=== PATIENT | female | born 1965 | race Caucasian/White ===

== ENCOUNTER 2023-03-15 09:11 | Emergency (ER) | payer MEDICAID, SELFPAY ==
[2023-03-15] VITALS (9 sets, daily range): BP systolic 89–115; BP diastolic 43–66; PULSE 55–64; RESP 12–18; TEMP 36.6–36.9; O2SAT 95–99; BMI 22.0
--- NOTE | ~2023-03-15 | XR_ITS ---
EXAMINATION: XR RIBS, LEFT CLINICAL INFORMATION: Left-sided rib pain, fall. COMPARISON: None available. TECHNIQUE: 3 views of the left ribs were obtained. FINDINGS: Lungs are clear. No consolidation, pneumothorax, or pleural effusion. The cardiomediastinal silhouette and pulmonary vasculature are normal. Mildly displaced left anterior eighth through 10th rib fractures. XR/XR ribs LT min 3V w CXR1V IMPRESSION: 1. Mildly displaced left anterior eighth through 10th rib fractures. 2. No acute cardiopulmonary findings.
--- NOTE | ~2023-03-15 | XR_ITS ---
EXAMINATION: XR SHOULDER, LEFT CLINICAL INFORMATION: Pain. COMPARISON: None available. TECHNIQUE: Three views of the left shoulder. FINDINGS: There is mild acromioclavicular osteoarthritis. Glenohumeral joint is well preserved. No fracture. Alignment is anatomic. Soft tissues are normal with no abnormal calcifications. XR/XR shoulder LT min 2V IMPRESSION: No acute fractures or malalignment. Mild acromioclavicular osteoarthritis.
--- NOTE | ~2023-03-15 | CT_ITS ---
EXAMINATION: CT CHEST, ABDOMEN, AND PELVIS WITH CONTRAST CLINICAL INFORMATION: COMPARISON: None TECHNIQUE: Multidetector volumetric CT imaging of the chest, abdomen, and pelvis was obtained after the administration of 85 mL of Omnipaque 350 intravenous contrast without immediate adverse reactions. Axial MIP volume rendering provided. Sagittal and coronal reformatted images were obtained. This CT examination was performed using dose optimization techniques as appropriate, variously including the following: *Automated exposure control *Adjustment of mA and/or kV according to patient size (this includes techniques or standardized protocols for targeted exams where dose is matched to indication/reason for exam; i.e. extremities or head) *Use of iterative reconstruction technique DLP: 363 mGy-cm FINDINGS: LUNGS: No acute infiltrate or lung nodule identified. Bibasilar lower lobe centrilobular emphysema. MEDIASTINUM: The mediastinum appears unremarkable. CORONARY ARTERY CALCIFICATION: Mild. PLEURA: No effusion or pneumothorax appreciated. No pleural mass or thickening identified. AXILLA: No lymphadenopathy by size criteria. LIVER, GALLBLADDER, AND BILIARY TREE: The liver appears unremarkable in size, shape, and attenuation. No focal hepatic lesion or biliary ductal dilatation is appreciated. Unremarkable appearance of the gallbladder. PANCREAS: Unremarkable SPLEEN: Unremarkable ADRENAL GLANDS: Unremarkable KIDNEYS AND URETERS: The kidneys appear unremarkable in size, shape, and attenuation. No hydronephrosis, hydroureter, or calculi seen. BLADDER: Poorly distended, therefore suboptimally evaluated. Grossly unremarkable. GASTROINTESTINAL TRACT: Status post gastric bypass. Small to moderate hiatus hernia. No diverticulosis. Normal-appearing distal ileum and vermiform appendix. ABDOMINAL WALL: No significant hernia is appreciated. LYMPH NODES: No evidence of adenopathy by size criteria. VASCULAR: Normal variant direct origin of the common hepatic artery from the aorta. Aortoiliac calcification. PELVIC VISCERA: Approximately 1.2 cm left ovarian macrocalcification. OSSEOUS STRUCTURES: Mildly displaced fractures at the lateral aspects of the left 7th through 10th ribs. Bilateral spondylolysis with grade 1-grade 2 anterolisthesis and severe disc space narrowing at L5-S1. Moderate to severe disc space narrowing at L2-L3. Mild multilevel additional degenerative changes. CT/CT abdomen pelvis w IV con IMPRESSION: Mildly displaced fractures at the lateral aspects of the left 7th through 10th ribs. No other acute radiographic finding.
--- NOTE | 2023-03-15 09:34 | ED.GENADULT ---
HPI - General Adult General Chief complaint: General Medical Stated complaint: n/v x4 days per ems Time Seen by Provider: 03/15/23 09:32 Source: patient and RN notes reviewed Mode of arrival: ambulatory Limitations: no limitations History of Present Illness HPI narrative: This is a 57-year-old female, with a history of stomach bypass, anxiety and depression, presenting to the emergency department from [place] for evaluation of dizziness and abnormal labs. Patient states that she is currently staying at [place] due to suicidal attempt 5 days ago. She states that she took multiple medications to overdose 2 under life and also had a fall. She was then seen at [facility] on March 09 2023 where she had an x-ray of her chest which revealed a T11 compression fracture, no rib fractures at the time. She states that she continues to have left-sided rib pain. She states that over the last several days that she has had dizziness especially upon standing. States that this dizziness lasts for 30 seconds and resolves on its own. She states that she chronically vomits every day for the last 6-8 years. History of stomach bypass and stomach ulcer. Denies any hemoptysis or hematemesis. She denies any headaches, blurred vision, chest pain, shortness of breath abdominal pain, nausea, or diarrhea. No bloody or black stool. Denies any urinary symptoms. No other complaints or concerns at this time. MD complaint: Dizziness Onset (ago): day(s) Relieving factors: none Exacerbating factors: none Associated symptoms: denies other symptoms Treatments prior to arrival: none Related Data Allergies Allergy/AdvReac Type Severity Reaction Status Date / Time codeine AdvReac Nightmare Verified 03/15/23 09:53 NSAIDS (Non-Steroidal AdvReac Abdominal Verified 03/15/23 09:53 Anti-Inflamma Pain Review of Systems Review of Systems: Yes all other systems are reviewed and are negative Constitutional: Constitutional: Reports as per [facility] Past Medical History Attestation statement: The following information was validated with the patient. Social History Social History Alcohol intake: current Alcohol intake frequency: holidays/special occasions only Smoked in Last 30 Days: Yes Substance Use Type: Crack/Cocaine Advance Directives: No Advance Directives Information Provided: No Physical Exam ED Vital Signs: Vital Signs - 24 hr 03/15/23 09:21 03/15/23 11:50 03/15/23 11:52 Temperature 98.1 F Pulse Rate 61 57 59 Respiratory Rate 16 Blood Pressure 100/54 L 102/43 L 94/46 L Pulse Oximetry 99 Oxygen Delivery Method Room Air 03/15/23 11:54 03/15/23 12:05 03/15/23 13:46 Temperature 97.8 F Pulse Rate 64 60 57 Respiratory Rate 18 16 Blood Pressure 89/46 L 99/55 L Pulse Oximetry 99 Oxygen Delivery Method Room Air 03/15/23 14:06 03/15/23 16:00 03/15/23 17:26 Temperature 98.0 F 98.4 F 98.2 F Pulse Rate 55 56 57 Respiratory Rate 16 16 12 Blood Pressure 104/54 L 107/66 115/45 L Pulse Oximetry 98 Oxygen Delivery Method Room Air BMI result Body Mass Index 22.0 Const General: cooperative, comfortable and no acute distress Orientation/consciousness: patient oriented x3 Limitations: no limitations HENMT Head: Yes normal to inspection, Yes normocephalic and Yes atraumatic Ears: hearing grossly normal bilaterally General nose exam: Normal external nose present Face and sinus: Yes normal facial exam Mouth: Normal oral and palatal mucosa present, oropharynx normal and moist mucous membranes Throat: Yes posterior oropharynx normal Eyes General: appearance normal, both eyes and all related structures Eyelids: Yes eyelids normal Conjunctivae: conjunctivae normal Sclerae: sclerae normal Pupils: Equal, round and reactive pupils present EOM: EOMs intact bilaterally Neck Neck: Yes normal visual inspection, Yes full ROM and Yes no lymphadenopathy Lymphatic: no lymphadenopathy noted Chest Other: Tenderness palpation along the left anterior chest wall, no flail chest, no bony step-off or deformity. Chest palpation & inspection: normal inspection of the chest Resp Effort & Inspection: normal respiratory effort and able to speak in complete sentences Auscultation: clear to auscultation bilaterally, no crackles, no rales, no rhonchi and no wheezes Cardio Rate: regular rate Rhythm: regular rhythm Heart sounds: S1 normal heart sound present and S2 normal heart sound present GI Inspection: Yes normal to inspection Skin General skin exam: no rashes or lesions noted Trauma: no lacerations or abrasions Wounds: no wounds Neuro General: patient oriented x3 and moves all extremities Cranial nerves: Yes Equal, round and reactive pupils present Extrem Other: Tenderness to palpation diffusely left shoulder joint tenderness palpation by, pain with range of positive empty can test General: Yes normal to inspection Right upper extremity: normal to inspection Left upper extremity: normal to inspection Right lower extremity: normal to inspection Left lower extremity: normal to inspection Course Reevaluation(s) Reevaluation #1: Critical hemoglobin at 7.0, hematocrit 24.7%. Time: 10:48 Reevaluation #2: Patient currently receiving packed red blood cells, CT chest revealing mildly displaced fractures at the lateral aspect of the left 7th through 10 rib, as well as degenerative changes in her spine. No acute radiologic findings seen. Patient will be admitted to the hospital given low H&H requiring blood transfusion. Time: 16:40 Reevaluation #3: Further discussion with hospitalist, given patient has for mildly displaced fractures at the left 7 through 10th ribs, and this is a high-risk situation giving complications regarding multiple rib fractures, she would benefit from trauma consult and transfer. Sign out given to my colleague Honorio Brady PA-C Time: 17:23 Additional Reevaluation(s): Patient received in sign-out at change of shift pending trauma consult at [facility] due to for minimally displaced rib fractures. The patient requires admission due to symptomatic anemia however can not be admitted to this hospital due to the number of rib fractures. I discussed with [facility] transfer line spoke to Dr. Robb who will accept the patient to [facility] ED as a trauma consult. I discussed with the patient as well to inform her of the change and she is agreeable to transfer I discussed with Radiology to push the images through to viral [employer] system and make a disc of the patient's CT scans to bring with her Medications Administered Discontinued Medications Generic Name Dose Route Start Last Admin Trade Name Freq PRN Reason Stop Dose Admin Acetaminophen 650 mg 03/15/23 12:52 03/15/23 12:56 Acetaminophen 325 Mg Tablet PO 03/15/23 12:53 650 mg ONCE ONE Administration Sodium Chloride 100 mls @ 100 mls/hr 03/15/23 12:35 03/15/23 17:29 Ns IV 03/15/23 13:34 Infused ONCE ONE Infusion Iohexol 100 ml 03/15/23 13:38 03/15/23 13:38 Iohexol 350 Mg/Ml 100 Ml Infus..Btl IV 03/15/23 13:39 85 ml ONCE ONE Administration Lorazepam 1 mg 03/15/23 18:26 03/15/23 18:32 Lorazepam 1 Mg Tablet PO 03/15/23 18:27 1 mg ONCE ONE Administration Medical Decision Making Medical Decision Making [facility] Narrative: This is a 57-year-old female presenting to the emergency department for evaluation of low blood pressure and ?abnormal labs. On arrival, blood pressure 100/54. She is neurologically stable. States that she gets dizzy upon standing, this has been happening for days. Denies any chest pain or shortness of breath. She also states that she was told that her H&H was low several days ago. Denies any bloody or black stool. Denies any hemoptysis. She states that she is otherwise feeling well, does endorse some left-sided rib pain status post mechanical fall which occurred last week. She is uncertain how this mechanical fall occurred however states that she was suicidal and took many of her medications and was seen at [facility] where she said that she did not have any rib fractures and was discharged to the psychiatric facility. Also reports some left shoulder pain which is chronic for her. Plan: Labs, x-ray left shoulder, x-ray left rib, orthostatics, EKG Differential Diagnosis Differential Diagnoses: The differential diagnosis associated with the presentation includes Anemia, orthostatic hypotension, dehydration, electrolyte abnormality, rib fracture, pneumothorax Consult Healthcare Provider Management of the patient was discussed with: Hospitalist Dr. Cruz Lab Data [facility] [place] Lab Attestation statement: I reviewed the patient's lab results. See course comment 03/15/23 10:07 03/15/23 10:07 Labs: Lab Results 03/15/23 03/15/23 03/15/23 Range/Units 10:07 11:53 17:39 WBC 5.2 (4.8-10.8) X10*3/uL RBC 3.63 L (4.20-5.50) X10*6/uL Hgb 7.0 L* (12.0-16.0) g/dl Hct 24.7 L (37.0-47.0) % MCV 68.0 L (80.0-98.0) fL MCH 19.3 L (27.0-33.0) pg MCHC 28.3 L (31.0-35.0) g/dl RDW 20.1 H (11.0-16.0) % Plt Count 408 H (160-400) X10*3/uL MPV 9.7 (9.4-12.3) fL Immature Gran % (Auto) 0.2 (0.0-0.4) % Neut % (Auto) 44.7 L (45-73) % Lymph % (Auto) 39.8 (20-40) % Porter % (Auto) 10.5 (2-11) % Eos % (Auto) 3.8 (0-4) % Baso % (Auto) 1.0 (0-2) % Lymph # (Auto) 2.1 (1.2-4.9) X10*3/uL Porter # (Auto) 0.6 (0.1-1.2) X10*3/uL Eos # (Auto) 0.2 (0.0-0.4) X10*3/uL Baso # (Auto) 0.1 (0.0-0.2) X10*3/uL Abs Immat Gran (auto) 0.01 (0.00-0.03) X10*3/uL Absolute Neuts (auto) 2.3 (2.0-8.3) x10*3/uL Absolute Nucleated RBC 0.000 (0.0-0.012) X10*3/uL Nucleated RBC % (auto) 0.0 (0.0-0.2) /100WBC PT 13.3 (11.1-13.3) SEC INR 1.1 (0.9-1.1) APTT 29.2 (26.0-36.4) SEC Sodium 142 (135-145) mmol/L Potassium 4.3 (3.3-5.1) mmol/L Chloride 107 (96-108) mmol/L Carbon Dioxide 28 (22-29) mmol/L Anion Gap 11 L (12-20) BUN 17 H (9-16) mg/dL Creatinine 0.98 (0.5-1.4) mg/dL Estim Creat Clear Calc 55.6 Estimated GFR 58 Random Glucose 93 (60-115) mg/dL Calcium 8.7 (8.4-10.2) mg/dL Magnesium 2.6 (1.6-2.6) mg/dL Total Bilirubin 0.3 (0.0-1.0) mg/dL Direct Bilirubin 0.1 (0.0-0.5) mg/dL AST 13 (5-31) U/L ALT 6 (0-31) U/L Alkaline Phosphatase 74 (39-117) U/L Troponin I High Sens < 2.7 (<3.5-17.0) ng/L Total Protein 5.9 L (6.5-8.0) g/dL Albumin 3.4 L (3.5-5.0) g/dL Lipase 29 (8-78) U/L Stool Occult Blood NEGATIVE (NEGATIVE) COVID-19 (NILSA) Negative (Negative) COVID-19 Clin Com See Note Blood Type O Positive Antibody Screen NEGATIVE Crossmatch See Detail Independent Interpretation I performed an independent interpretation of an: EKG Interpretation: EKG sinus bradycardia at a ventricular rate of 57 beats per minute, SD interval 160, QTC 422, no ST elevation or depression. Radiology Impression Discussion of test interpretation with radiology: I have reviewed the radiologist's reading. Radiologist Impression: EXAMINATION: CT CHEST, ABDOMEN, AND PELVIS WITH CONTRAST CLINICAL INFORMATION: COMPARISON: None TECHNIQUE: Multidetector volumetric CT imaging of the chest, abdomen, and pelvis was obtained after the administration of 85 mL of Omnipaque 350 intravenous contrast without immediate adverse reactions. Axial MIP volume rendering provided. Sagittal and coronal reformatted images were obtained. This CT examination was performed using dose optimization techniques as appropriate, variously including the following: *Automated exposure control *Adjustment of mA and/or kV according to patient size (this includes techniques or standardized protocols for targeted exams where dose is matched to indication/reason for exam; i.e. extremities or head) *Use of iterative reconstruction technique DLP: 363 mGy-cm FINDINGS: LUNGS: No acute infiltrate or lung nodule identified. Bibasilar lower lobe centrilobular emphysema. MEDIASTINUM: The mediastinum appears unremarkable. CORONARY ARTERY CALCIFICATION: Mild. PLEURA: No effusion or pneumothorax appreciated. No pleural mass or thickening identified. AXILLA: No lymphadenopathy by size criteria. LIVER, GALLBLADDER, AND BILIARY TREE: The liver appears unremarkable in size, shape, and attenuation. No focal hepatic lesion or biliary ductal dilatation is appreciated. Unremarkable appearance of the gallbladder. PANCREAS: Unremarkable SPLEEN: Unremarkable ADRENAL GLANDS: Unremarkable KIDNEYS AND URETERS: The kidneys appear unremarkable in size, shape, and attenuation. No hydronephrosis, hydroureter, or calculi seen. BLADDER: Poorly distended, therefore suboptimally evaluated. Grossly unremarkable. GASTROINTESTINAL TRACT: Status post gastric bypass. Small to moderate hiatus hernia. No diverticulosis. Normal-appearing distal ileum and vermiform appendix. ABDOMINAL WALL: No significant hernia is appreciated. LYMPH NODES: No evidence of adenopathy by size criteria. VASCULAR: Normal variant direct origin of the common hepatic artery from the aorta. Aortoiliac calcification. PELVIC VISCERA: Approximately 1.2 cm left ovarian macrocalcification. OSSEOUS STRUCTURES: Mildly displaced fractures at the lateral aspects of the left 7th through 10th ribs. Bilateral spondylolysis with grade 1-grade 2 anterolisthesis and severe disc space narrowing at L5-S1. Moderate to severe disc space narrowing at L2-L3. Mild multilevel additional degenerative changes. CT/CT chest w IV con IMPRESSION: Mildly displaced fractures at the lateral aspects of the left 7th through 10th ribs. No other acute radiographic finding. Dictated By: Carloz Mike EXAMINATION: CT CHEST, ABDOMEN, AND PELVIS WITH CONTRAST CLINICAL INFORMATION: COMPARISON: None TECHNIQUE: Multidetector volumetric CT imaging of the chest, abdomen, and pelvis was obtained after the administration of 85 mL of Omnipaque 350 intravenous contrast without immediate adverse reactions. Axial MIP volume rendering provided. Sagittal and coronal reformatted images were obtained. This CT examination was performed using dose optimization techniques as appropriate, variously including the following: *Automated exposure control *Adjustment of mA and/or kV according to patient size (this includes techniques or standardized protocols for targeted exams where dose is matched to indication/reason for exam; i.e. extremities or head) *Use of iterative reconstruction technique DLP: 363 mGy-cm FINDINGS: LUNGS: No acute infiltrate or lung nodule identified. Bibasilar lower lobe centrilobular emphysema. MEDIASTINUM: The mediastinum appears unremarkable. CORONARY ARTERY CALCIFICATION: Mild. PLEURA: No effusion or pneumothorax appreciated. No pleural mass or thickening identified. AXILLA: No lymphadenopathy by size criteria. LIVER, GALLBLADDER, AND BILIARY TREE: The liver appears unremarkable in size, shape, and attenuation. No focal hepatic lesion or biliary ductal dilatation is appreciated. Unremarkable appearance of the gallbladder. PANCREAS: Unremarkable SPLEEN: Unremarkable ADRENAL GLANDS: Unremarkable KIDNEYS AND URETERS: The kidneys appear unremarkable in size, shape, and attenuation. No hydronephrosis, hydroureter, or calculi seen. BLADDER: Poorly distended, therefore suboptimally evaluated. Grossly unremarkable. GASTROINTESTINAL TRACT: Status post gastric bypass. Small to moderate hiatus hernia. No diverticulosis. Normal-appearing distal ileum and vermiform appendix. ABDOMINAL WALL: No significant hernia is appreciated. LYMPH NODES: No evidence of adenopathy by size criteria. VASCULAR: Normal variant direct origin of the common hepatic artery from the aorta. Aortoiliac calcification. PELVIC VISCERA: Approximately 1.2 cm left ovarian macrocalcification. OSSEOUS STRUCTURES: Mildly displaced fractures at the lateral aspects of the left 7th through 10th ribs. Bilateral spondylolysis with grade 1-grade 2 anterolisthesis and severe disc space narrowing at L5-S1. Moderate to severe disc space narrowing at L2-L3. Mild multilevel additional degenerative changes. CT/CT abdomen pelvis w IV con IMPRESSION: Mildly displaced fractures at the lateral aspects of the left 7th through 10th ribs. No other acute radiographic finding. Dictated By: Carloz Mike EXAMINATION: XR SHOULDER, LEFT CLINICAL INFORMATION: Pain. COMPARISON: None available. TECHNIQUE: Three views of the left shoulder. FINDINGS: There is mild acromioclavicular osteoarthritis. Glenohumeral joint is well preserved. No fracture. Alignment is anatomic. Soft tissues are normal with no abnormal calcifications. XR/XR shoulder LT min 2V IMPRESSION: No acute fractures or malalignment. Mild acromioclavicular osteoarthritis. Dictated By: Lalitha Barton EXAMINATION: XR RIBS, LEFT CLINICAL INFORMATION: Left-sided rib pain, fall. COMPARISON: None available. TECHNIQUE: 3 views of the left ribs were obtained. FINDINGS: Lungs are clear. No consolidation, pneumothorax, or pleural effusion. The cardiomediastinal silhouette and pulmonary vasculature are normal. Mildly displaced left anterior eighth through 10th rib fractures. XR/XR ribs LT min 3V w CXR1V IMPRESSION: 1. Mildly displaced left anterior eighth through 10th rib fractures. 2. No acute cardiopulmonary findings. Dictated By: Lalitha Barton Critical Care Time Critical Care Time Critical Care Time: Yes Total Critical Care Time: 60 Attestation: I have personally provided critical care time exclusive of time spent on separately billable procedures. Time includes review of lab data, radiology results, discussion with consultants, and monitoring for potential decompensation. Intervention performed as documented. Discharge Plan Discharge Clinical Impression: Symptomatic anemia, Multiple fractures of ribs Patient Disposition: [facility] Hospital Transfer Details: [facility] Interventions: Acute Care Transfer Worksheet (ED) Last Done: 03/15/23 19:01
--- NOTE | 2023-03-15 09:55 | ECG_ITS ---
Test Reason : dizziness Blood Pressure : / mmHG Vent. Rate : 057 BPM Atrial Rate : 057 BPM P-R Int : 160 ms QRS Dur : 078 ms QT Int : 434 ms P-R-T Axes : 064 066 047 degrees QTc Int : 422 ms Sinus bradycardia Otherwise normal ECG No previous ECGs available Referred By: Riana Shin Electronically Signed By:MASSIEL VAZQUEZ MD
[2023-03-15 10:11] LABS: MANUAL DIFF FLAG NO
[2023-03-15 10:37] LABS: Alanine Aminotransferase 6 U/L (0-31); Albumin Level 3.4 g/dL (3.5-5.0); Alkaline Phosphatase 74 U/L (39-117); Anion Gap 11 (12-20); Aspartate Amino Transferase 13 U/L (5-31); Bilirubin Direct 0.1 mg/dL (0.0-0.5); Bilirubin Total 0.3 mg/dL (0.0-1.0); Blood Urea Nitrogen 17 mg/dL (9-16); Calcium 8.7 mg/dL (8.4-10.2); Carbon Dioxide 28 mmol/L (22-29); Chloride 107 mmol/L (96-108); Creatinine Clr Calc Pharmacy 55.6; Estimated Glomerular Filt Rate 58; Glucose Random 93 mg/dL (60-115); Lipase 29 U/L (8-78); Magnesium 2.6 mg/dL (1.6-2.6); Potassium 4.3 mmol/L (3.3-5.1); Sodium 142 mmol/L (135-145); Total Protein 5.9 g/dL (6.5-8.0)
[2023-03-15 10:41] LABS: Basophils Absolute Auto 0.1 X10*3/uL (0.0-0.2); Eosinophils Absolute Auto 0.2 X10*3/uL (0.0-0.4); Eosinophils Percent Auto 3.8 % (0-4); Hematocrit 24.7 % (37.0-47.0); Imm Gran Abs Auto 0.01 X10*3/uL (0.00-0.03); Imm Gran Pct Auto 0.2 % (0.0-0.4); Lymphocytes Absolute Auto 2.1 X10*3/uL (1.2-4.9); Lymphocytes Percent Auto 39.8 % (20-40); Mean Corpuscular HGB Conc 28.3 g/dl (31.0-35.0); Mean Corpuscular Hemoglobin 19.3 pg (27.0-33.0); Mean Platelet Volume 9.7 fL (9.4-12.3); Monocytes Absolute Auto 0.6 X10*3/uL (0.1-1.2); Monocytes Percent Auto 10.5 % (2-11); Neutrophils Absolute Auto 2.3 x10*3/uL (2.0-8.3); Neutrophils Percent Auto 44.7 % (45-73); Platelet Count 408 X10*3/uL (160-400); Red Blood Count 3.63 X10*6/uL (4.20-5.50); Red Cell Distribution Width 20.1 % (11.0-16.0); White Blood Count 5.2 X10*3/uL (4.8-10.8)
[2023-03-15 10:44] LABS: Troponin-I High Sensitivity < 2.7 ng/L (<3.5-17.0)
[2023-03-15 12:01] LABS: OBS Int Ctl Valid YES; OBS1 NEGATIVE (NEGATIVE)
--- NOTE | 2023-03-15 12:06 | PC.NURSE ---
pt coming from [facility] for low BP, low H&H. labs drawn here and 2 IVs inserted. Pt reports that they chronically vomit and do so every day for several years. PA notified. Denies nausea at this time. Pt ambulatory and walks well around the nursing station. Asking for coffee, pt instructed by PA that they can have a small amount of ice water.
[2023-03-15 12:09] LABS: INTERNATIONAL NORM RATIO 1.1 (0.9-1.1); Prothrombin Time 13.3 SEC (11.1-13.3)
[2023-03-15 12:12] LABS: Partial Thromboplastin Time 29.2 SEC (26.0-36.4)
[2023-03-15] MEDS: Acetaminophen 325 MG TABLET 650 MG PO (12:56)
--- NOTE | 2023-03-15 13:17 | PC.NURSE ---
blood is ready from blood bank. pt in ct scan. will send for blood when they return
[2023-03-15] MEDS: iohexoL 350 MG/ML 100 ML INFUS..BTL IV (13:38)
--- NOTE | 2023-03-15 16:28 | PC.NURSE ---
blood continues to infuse per [facility]. VS WNL, no complaints of pain. LSCB
[2023-03-15 17:58] LABS: COVID-19 Test Negative (Negative); IDNOW Serial# 58CA691E
[2023-03-15] MEDS: LORazepam 1 MG TABLET PO (18:32)
== END 2023-03-15 19:01 | disposition short-term general hospital (02) ==
PROVIDERS: Physician Assistant; Physician Assistant Medical; Emergency Provider Emergency Medicine
DX: S22.42XA Multiple fractures of ribs, left side, initial encounter for closed fracture (principal); R11.2 Nausea with vomiting, unspecified; R42 Dizziness and giddiness; R79.89 Other specified abnormal findings of blood chemistry; R07.81 Pleurodynia; F14.10 Cocaine abuse, uncomplicated; R00.1 Bradycardia, unspecified; M25.512 Pain in left shoulder; D64.9 Anemia, unspecified; X58.XXXA Exposure to other specified factors, initial encounter; Y93.9 Activity, unspecified; Y92.9 Unspecified place or not applicable; Y99.8 Other external cause status; Z11.52 Encounter for screening for COVID-19; Z91.51 Personal history of suicidal behavior; Z98.84 Bariatric surgery status; Z79.899 Other long term (current) drug therapy
CPT/HCPCS: 36415; 36430; 71101; 71260; 73030; 74177; 80048; 80076; 82272; 83690; 83735; 84484; 85025; 85610; 85730; 86850; 86900; 86901; 86923; 87635; 93005; 96360; 96361; 99285; P9016; Q9967

== ENCOUNTER → 2023-03-15 09:55 | Outpatient (BNV) | payer MEDICAID, SELFPAY | PROVIDERS: Emergency Provider Emergency Medicine; Visit Provider Internal Medicine Cardiovascular Disease | DX: R00.1 Bradycardia, unspecified (principal) | CPT/HCPCS: 93010 ==